=== PATIENT | female | born 1985 | race Caucasian/White ===

== ENCOUNTER 2017-01-26 14:14 | Emergency (ER) | payer OTHER ==
[~2017-01-26] VITALS: Ht 160 cm; Wt 65.9 kg
[2017-01-26 14:15] VITALS: BP 138/86
== END 2017-01-26 16:28 | disposition left against medical advice (07) ==
LOC: M ED 14:14
DX: Z53.21 Procedure and treatment not carried out due to patient leaving prior to being seen by health care provider (principal)